=== PATIENT | female | born 1965 | race Caucasian/White ===

== ENCOUNTER 2016-06-29 14:44 | Emergency (ER) | payer OTHER ==
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
== END 2016-06-29 15:20 | disposition home or self-care (01) ==
LOC: CFTX 14:44
DX: S16.1XXA Strain of muscle, fascia and tendon at neck level, initial encounter (principal); S40.012A Contusion of left shoulder, initial encounter; S50.02XA Contusion of left elbow, initial encounter; S00.531A Contusion of lip, initial encounter; S70.12XA Contusion of left thigh, initial encounter; Z23 Encounter for immunization; V49.40XA Driver injured in collision with unspecified motor vehicles in traffic accident, initial encounter; Y93.89 Activity, other specified; Y92.410 Unspecified street and highway as the place of occurrence of the external cause; F17.210 Nicotine dependence, cigarettes, uncomplicated
CPT/HCPCS: 72040; 72100; 73030; 73080; 73552; 90471; 90715; 96372; 99284